=== PATIENT | male | born 1940 | race Caucasian/White ===

== ENCOUNTER 2024-04-11 13:42 | Outpatient (AMB) | payer MEDICARE, SELFPAY ==
--- NOTE | 2024-04-11 13:50 | A.SPINEOV_ITS ---
Intake Visit Reasons: lumbar stenosis Intake Note: Mr. Blancas is here today C/o low back pain that radiate down to hips and legs. Health Psychologist Required: No Allergies No Known Allergies Allergy (Verified 04/11/24 14:11) Assessment & Plan Assessment & Plan (1) Lumbar stenosis with neurogenic claudication: Code(s): M48.062 - Spinal stenosis, lumbar region with neurogenic claudication Category: Medical Plan: Dear colleague Thank you for referring Km Blancas to the office today with a chief complaint of back pain and bilateral leg pain. HPI: This 83-year-old male developed back pain radiating to his hips down his legs. The pain started 5 years ago and has progressed over time. The symptoms are severe in the morning and with walking and standing. Sitting down improves the symptoms. The pain is significantly interfering with his daily activities. Denies any weakness or numbness He takes 1-2 ibuprofen today that will alleviate the low back pain. He also did that home exercise program. The following conservative treatment options were tried without success antiinflammatories, tylenol, physician guided home exercise plan, cortisone shots PMH: Hypertension, hypercholesterolemia, psoriasis, right shoulder replacement Medications: Rosuvastatin, omeprazole, triamterene/hydrochlorothiazide, amlodipine,Skyrizi injections. Allergies: None Social history: Retired. . Nonsmoker. Physical Exam: Pleasant male walks with a slight flexed posterior. Straight leg raise is negative. No neurological deficits for motor sensation reflexes. However the patient is able to reproduce the pain radiating down his legs after short period of standing in the office. Radiological Studies: MRI done at [facility] shows advanced multilevel lumbar degenerative disc disease with a near complete disc collapse at L2-3 and L3-4. There is an auto fusion of L4-5. There are large anterior osteophytes at L2-3 and L3-4. More importantly, there is severe spinal stenosis at L2-3 and L3-4 and bilateral foraminal stenosis. The L2-3 stenosis is partly caused by an extruded disc herniation. A standing x-rays shows again the auto fusion at L4-5 and the anterior osteophytes at L2-3 and L3-4. Impression/Plan: This patient is suffering from back pain and neurogenic claudication symptoms. The latter being more severe than the back pain. The MRI shows severe spinal stenosis at L2-3 and L3-4 in conjunction with advanced degenerative disc disease and arthritis. I would like to obtain a CT of the lumbar spine to assess if there is also auto fusion of L2-3 and L3-4 and to see if the disc extrusion at L3-4 is calcified to determine the optimal surgical plan for this patient. The CT scan will be done at [facility] and he will call for a follow-up appointment. Thank you for allowing me to participate in your patients care. total time spent was 50 minutes in counseling ,coordination of plan, personal review of imaging, surgical decision making and subsequent plan Hamilton Wilder MD, PhD Spine Fellowship Trained Neurosurgeon Director, [facility] (2) Scoliosis of lumbar region due to degenerative disease of spine in adult: Code(s): M41.56 - Other secondary scoliosis, lumbar region Category: Medical Plan: cf Orders: Orders XR lumbar spine 4V min Today M41.56 - Other secondary scoliosis, lumbar region, M48.062 - Spinal stenosis, lumbar region with neurogenic claudication CT lumbar spine wo IV con Today M48.062 - Spinal stenosis, lumbar region with neurogenic claudication Coding Level of Care Code New Pt Level 4 (36375) Diagnoses Lumbar stenosis with neurogenic claudication M48.062 Scoliosis of lumbar region due to degenerative disease of spine in adult M41.56
== END 2024-04-11 15:18 | disposition home or self-care (01) ==
PROVIDERS: Referring Provider Family Medicine; Visit Provider Neurological Surgery
DX: M48.062 Spinal stenosis, lumbar region with neurogenic claudication (principal); M41.56 Other secondary scoliosis, lumbar region
CPT/HCPCS: 99204

== ENCOUNTER 2024-04-11 13:42 | Outpatient (REF) | payer MEDICARE, SELFPAY ==
--- NOTE | ~2024-04-11 | XR_ITS ---
EXAMINATION: Lumbar spine x-ray. INDICATION: Spinal stenosis, lumbar region with neurogenic claudication. COMPARISON: No priors. TECHNIQUE: AP and lateral views. Coned lateral view of L5-S1. Lateral views during flexion and extension. FINDINGS: Submitted for interpretation on June 23, 2024. Multilevel marginal osteophyte formation and disc desiccation with the endplate sclerosis and decreased intervertebral disc height from the lower thoracic to the lumbar spine. No acute cortical disruption. No gross malalignment. No lytic or blastic lesions. Vascular calcifications. XR/XR lumbar spine 4V min IMPRESSION: Multilevel thoracolumbar spondylosis without acute fracture or gross listhesis. Electronically signed by: Js Plasencia MD 06/23/2024 09:04 AM [facility]
== END 2024-04-11 13:43 | disposition home or self-care (01) ==
LOC: HO.HOSX 13:42
PROVIDERS: PCP Family Medicine; Visit Provider Neurological Surgery
DX: M48.062 Spinal stenosis, lumbar region with neurogenic claudication (principal); M41.56 Other secondary scoliosis, lumbar region
CPT/HCPCS: 72110; 99202

== ENCOUNTER → 2024-04-11 14:37 | Outpatient (BNV) | payer MEDICARE, SELFPAY | PROVIDERS: PCP Family Medicine; Visit Provider Radiology Diagnostic Radiology | DX: M47.895 Other spondylosis, thoracolumbar region (principal) | CPT/HCPCS: 72110 ==